=== PATIENT | male | born 1985 | race Caucasian/White ===

== ENCOUNTER 2020-05-12 15:07 | Emergency (ER) | payer OTHER ==
[2020-05-12 15:15] VITALS: BP 119/77; PULSE 76; BMI 28.1
--- NOTE | 2020-05-12 16:49 | PDOC ---
History of Present Illness - General Chief Complaint: Pain Stated Complaint: CHEST PAIN Time Seen by Provider: 05/12/20 16:40 History Source: Patient Exam Limitations: No Limitations - History of Present Illness Initial Comments: 05/12/20 19:43 34 year old male with no significant medical or surgical history presents with pain to left upper arm that radiates to left forearm into left 5th digit since yesterday. Also states pain on left side of neck and mid epigastric pain. De nies nausea, dizziness and shortness of breath. STates epigastric pain feels like heart burn. Presenting Symptoms: Abdominal Pain Timing/Duration: reports: intermittent Severity/Quality: reports: mild, aching Location: reports: epigastric, other (left upper arm ) Chest Pain Radiation: reports: no radiation Activities at Onset: reports: none Prior Chest Pain/Cardiac Workup: reports: No prior chest pain Nitro Today/Relief: Yes: no nitro taken today Aspirin Received prior to arrival (Core Measure): Yes: no aspirin today ASA Contraindications (Core Measure): No: Allergy Beta Sunita given by EMS (Core Measure): No Beta Sunita taken at Home (Core Measure): No Beta Sunita Contraindications (Core Measure): Yes: Not Prescribed Associated Symptoms: Yes: Heartburn. No: Abdominal pain, Cough, Chest Pain/pressure, Dizziness, Fever/chills, Nausea, Palpitations, Shortness of Breath Past History - Travel History Traveled outside of the country in the last 30 days: No Close contact w/someone who was outside of country & ill: No - Medical History Allergies/Adverse Reactions: Allergies Allergy/AdvReac Type Severity Reaction Status Date / Time No Known Allergies Allergy Verified 05/12/20 15:15 Home Medications: Ambulatory Orders Famotidine [Pepcid] 20 mg PO DAILY #14 tablet 05/12/20 COPD: No - Psycho-Social/Smoking History Smoking History: Never smoked Cardiac Specific PMH - Complaint Specific PMHX Abdominal Aortic Aneurysm: No Angina: No Cardiac Stent: No GERD: No Peripheral Vascular Disease: No Review of Systems - Review of Systems Able to Perform ROS?: Yes Is the patient limited Yakut proficient: No Constitutional: No: Chills, Fever HEENTM: No: Mouth Pain Respiratory: No: Cough, Orthopnea, Shortness of Breath, SOB at Rest Cardiac (ROS): No: Chest Pain, Chest Tightness ABD/GI: Yes: Other (epigastric pain). No: Nausea, Poor Appetite : No: Incontinence, Pain, Urgency Musculoskeletal: Yes: Other (left upper arm pain). No: Back Pain, Joint Pain, Muscle Pain, Muscle Weakness Neurological: No: Headache, Numbness, Paresthesia, Weakness Endocrine: No: Intolerance to Heat Hematologic/Lymphatic: No: Blood Clots, Bleeding Diathesis *Physical Exam - Vital Signs Last Vital Signs Temp Pulse Resp BP Pulse Ox 76 18 119/77 100 05/12/20 15:11 05/12/20 15:11 05/12/20 15:11 05/12/20 15:11 - Physical Exam General Appearance: Yes: Nourished HEENT: positive: Pharynx Normal Respiratory/Chest: positive: Lungs Clear Cardiovascular: positive: Regular Rhythm, Regular Rate, Other (non tender chest) Extremity: positive: Other (no swelling, redness or tenderness of upper left arm, non tender chest) Neurologic: positive: Fully Oriented, Alert ED Treatment Course - LABORATORY CBC & Chemistry Diagram: 05/12/20 18:09 05/12/20 18:09 - ADDITIONAL ORDERS Additional order review: Laboratory Results 05/12/20 05/12/20 18:09 18:09 PT with INR 12.20 INR 1.03 PTT (Actin FS) 44.9 H Sodium 140 Potassium 4.3 Chloride 103 Carbon Dioxide 27 Anion Gap 10 BUN 15.1 Creatinine 1.0 Est GFR (CKD-EPI)AfAm 114.91 Est GFR (CKD-EPI)NonAf 99.15 Random Glucose 84 Calcium 9.9 Total Bilirubin 0.7 AST 22 ALT 40 Alkaline Phosphatase 81 Troponin I < 0.02 Total Protein 8.7 H Albumin 4.6 05/12/20 18:09 RBC 6.04 H MCV 85.0 MCHC 33.4 RDW 12.8 MPV 9.1 Neutrophils % 65.8 Lymphocytes % 25.9 Monocytes % 6.8 Eosinophils % 1.1 Basophils % 0.4 - Medications Given in the ED: ED Medications Discontinued Medications Generic Name Dose Route Start Last Admin Trade Name Freq PRN Reason Stop Dose Admin Ibuprofen 600 mg 05/12/20 19:04 05/12/20 19:14 Motrin - PO 05/12/20 19:05 600 mg ONCE ONE Administration Medical Decision Making - Medical Decision Making 05/12/20 19:51 34 year old male with no significant medical or surgical history presents with pain to left upper arm that radiates to left forearm into left 5th digit since yesterday. left upper arm pain heartburn -ekg ordered -labs ordered reasses ekg nsr troponin negative patient stable throughout stay no further complaints of pain Discharge - Discharge Information Problems reviewed: Yes Clinical Impression/Diagnosis: Left arm pain, Heartburn Condition: Good Disposition: HOME - Admission No - Additional Discharge Information Prescriptions: Famotidine [Pepcid] 20 mg PO DAILY #14 tablet - Follow up/Referral Referrals: ON STAFF,NOT [Primary Care Provider] - (Call your primary physician for follow up appointment this week ) - Patient Discharge Instructions Patient Printed Discharge Instructions: DI for Heartburn, DI for Arm Pain Additional Instructions: Please return for left sided chest pain with nausea, dizziness and shortness of breath Call primary physician for follow up appointment Take medication as prescribed - Post Discharge Activity Work/Back to School Note: Back to Work
[2020-05-12 18:22] LABS: BASO % 0.4 % (0-2.0); EOS % 1.1 % (0-4.5); HEMATOCRIT 51.3 % (35.4-49); HEMOGLOBIN 17.1 GM/dL (11.7-16.9); LYMPH % 25.9 % (8-40); MCH 28.4 pg (25.7-33.7); MCHC 33.4 g/dl (32.0-35.9); MEAN PLT VOLUME 9.1 fl (7.5-11.1); MONO % 6.8 % (3.8-10.2); NEUT % 65.8 % (42.8-82.8); PLATELET COUNT 247 K/MM3 (134-434); RBC 6.04 M/mm3 (4.00-5.60); RDW 12.8 % (11.9-15.9); WHITE BLOOD COUNT 8.6 K/mm3 (4.0-10.0)
[2020-05-12 18:32] LABS: INR 1.03 (0.83-1.09); PROTHROMBIN TIME (PATIENT) 12.2 SEC (9.7-13.0)
[2020-05-12 18:35] LABS: ACTIVATED PTT 44.9 SECONDS (25.2-36.5)
[2020-05-12 18:51] LABS: ALBUMIN 4.6 g/dl (3.4-5.0); ALK PHOS 81 U/L (45-117); ANION GAP 10 MMOL/L (8-16); BILIRUBIN,TOTAL 0.7 mg/dL (0.2-1); BLOOD UREA NITROGEN 15.1 mg/dL (7-18); CALCIUM 9.9 mg/dL (8.5-10.1); CHLORIDE 103 mmol/L (98-107); CO2 27 mmol/L (21-32); GLUCOSE,RANDOM 84 mg/dL (74-106); POTASSIUM 4.3 mmol/L (3.5-5.1); SGOT/AST 22 U/L (15-37); SGPT/ALT 40 U/L (13-61); SODIUM 140 mmol/L (136-145); TOT PROT 8.7 g/dl (6.4-8.2)
[2020-05-12] MEDS ORDERED: IBUPROFEN 600 MG TABLET (FP) PO ONE ×2 (19:04→19:27)
--- NOTE | 2020-05-13 13:30 | EKG ---
Test Reason : Blood Pressure : / mmHG Vent. Rate : 067 BPM Atrial Rate : 067 BPM P-R Int : 138 ms QRS Dur : 104 ms QT Int : 374 ms P-R-T Axes : 046 066 037 degrees QTc Int : 395 ms NORMAL SINUS RHYTHM NORMAL ECG NO PREVIOUS ECGS AVAILABLE Confirmed by MD YOVANI, SALMA ([id number]) on 05/13/2020 1:29:52 PM Referred By: Confirmed By:SALMA PINA MD
== END 2020-05-12 20:43 | disposition home or self-care (01) ==
LOC: JER 15:07
DX: M79.602 Pain in left arm (principal); R12 Heartburn
CPT/HCPCS: 36415; 80053; 84484; 85025; 85610; 85730; 93005; 93010; 99284-25

== ENCOUNTER 2021-02-12 21:50 | Emergency (ER) | payer OTHER ==
[2021-02-12 22:00] VITALS: BP 132/85; PULSE 82; TEMP 98.5; BMI 28.3
[2021-02-12] MEDS ORDERED: SODIUM CHLORIDE 1,000 ML IV STA (22:23)
[2021-02-12 22:47] LABS: BASO % 1.4 % (0-2.0); EOS % 1.7 % (0-4.5); HEMATOCRIT 44.3 % (35.4-49); HEMOGLOBIN 15.5 GM/dl (11.7-16.9); LYMPH % 34.6 % (8-40); MCH 29.1 pg (25.7-33.7); MCHC 34.9 g/dl (32.0-35.9); MEAN CELL VOLUME 83.3 fl (80-96); MEAN PLT VOLUME 8.9 fl (7.5-11.1); MONO % 8.9 % (3.8-10.2); NEUT % 53.4 % (42.8-82.8); PLATELET COUNT 259 K/MM3 (134-434); RBC 5.31 M/mm3 (4.00-5.60); RDW 11.6 % (11.9-15.9); WHITE BLOOD COUNT 8.3 K/mm3 (4.0-10.8)
[2021-02-13 00:07] LABS: CALCIUM 9.3 mg/dL (8.5-10.1)
[2021-02-13 00:12] LABS: BILIRUBIN,TOTAL 0.4 mg/dL (0.2-1); TOT PROT 7.7 g/dl (6.4-8.2)
[2021-02-13] MEDS ORDERED: KETOROLAC TROMETHAMINE 30 MG/1 ML VIAL IVPUSH ONE (01:45)
[2021-02-13] MEDS ORDERED: KETOROLAC TROMETHAMINE 30 MG/1 ML VIAL ONE (01:46)
== END 2021-02-13 02:08 | disposition home or self-care (01) ==
LOC: FER 21:50
PROC: 3E0333Z Introduction of Anti-inflammatory into Peripheral Vein, Percutaneous Approach (ICD-10-PCS; principal; 2021-02-12)
PROC: 3E0337Z Introduction of Electrolytic and Water Balance Substance into Peripheral Vein, Percutaneous Approach (ICD-10-PCS; 2021-02-12)
DX: R10.10 Upper abdominal pain, unspecified (principal); R19.7 Diarrhea, unspecified
CPT/HCPCS: 36415; 74176-TC; 80053; 83690; 85025; 99285-25